=== PATIENT | female | born 1940 | race African-American/Black ===

== ENCOUNTER 2016-07-14 17:33 | Inpatient (IN) | payer OTHER ==
[~2016-07-14] VITALS: Ht 172.7 cm; Wt 88.0 kg
[2016-07-14 17:33] VITALS: BP 94/60; PULSE 94; RESP 17; TEMP 98.2; O2SAT 72
--- NOTE | 2016-07-14 17:33 | NUR ---
BROUGHT IN BY ACLS [address] AND CARLA RICHARDSON, PLACED IN BED #2 AND TRIAGED. REPORT GIVEN TO HOWARD
--- NOTE | 2016-07-14 17:33 | NUR ---
Placed on cardiac cath technologist, blood pressure machine and pulse oximeter. To gown for exam. Side rails up.
[2016-07-14] MEDS ORDERED: NACL 0.9% 1,000 ML IV SCH (17:43)
--- NOTE | 2016-07-14 17:49 | NUR ---
ER at bedside examining patient.
--- NOTE | 2016-07-14 17:50 | NUR ---
# 20 gauge angiocath placed to RFA. Use of asceptic technique. Opsite placed over site. Blood return noted. Blood for lab drawn from site. Flushed with 10 cc of normal saline. No evidence of infiltration noted. Patient tolerated well.
--- NOTE | 2016-07-14 17:51 | NUR ---
Pt left AMA at [facility] for weakness,hypotension earlier today.went to libarary,had a near syncopal episode at the restroom.did not fell.pt low blood pressure on scene.blood surgar 116. pt also c/o diarrhea since yesterday.feels very weak.pt is awake,alert,oriented x4. no focal neuro deficit noted.skin is cool and dry. no acute resp distress. will continue monitor pt
--- NOTE | 2016-07-14 18:23 | NUR ---
portable chest xay done at bedside
[2016-07-14 19:03] LABS: ANION GAP 5 (5-15); CALCIUM 8.3 mg/dL (8.4-11.0); CHLORIDE 103 mmol/L (98-107); CREATININE 2.45 mg/dL (0.55-1.30); GLUCOSE 117 mg/dL (70-99); POTASSIUM 3.8 mmol/L (3.5-5.1); SODIUM SERUM 134 mmol/L (136-145); UREA NITROGEN, BLOOD 54 mg/dL (8-21)
--- NOTE | 2016-07-14 19:07 | NUR ---
report given to retail shift leader casey UGARTE
[2016-07-14 19:08] LABS: ALANINE AMINOTRANSFERASE 37 U/L (12-78); ALBUMIN 3.4 g/dL (3.4-4.8); ASPARTATE AMINOTRANSFERASE 40 U/L (10-37); TOTAL BILIRUBIN 0.4 mg/dL (0.0-1.0); TOTAL PROTEIN, SERUM 7.2 g/dL (6.4-8.3)
[2016-07-14 19:11] LABS: BASOPHILS % (AUTO) 0.7 % (0.0-2.0); MONOCYTES # (AUTO) 0.4 K/uL (0.0-1.0); NEUTROPHILS # (AUTO) 3.7 K/uL (1.8-7.7)
--- NOTE | 2016-07-14 19:16 | NUR ---
Received patient alert and oriented and in no acute distress or SOB. Anxious to be admitted. Family members at bedside. Denies pain at this time. Will continue to monitor.
[2016-07-14 19:22] LABS: EOSINOPHILS % (AUTO) 0.7 % (0.0-4.0); HEMATOCRIT 36.6 % (36-48); HEMOGLOBIN 12.4 g/dL (12.0-16.0); LYMPHOCYTES # (AUTO) 1.3 K/uL (1.0-5.5); LYMPHOCYTES % (AUTO) 23.3 % (20.5-51.5); MEAN CORPUSCULAR HEMOGLOBIN 30 pg (27-31); MEAN CORPUSCULAR HGB CONC 34 % (32-36); MEAN CORPUSCULAR VOLUME 89 fL (79.0-98.0); MONOCYTES % (AUTO) 7.7 % (1.7-9.3); NEUTROPHILS % (AUTO) 67.6 % (40.0-70.0); PLATELET COUNT (AUTO) 225 K/uL (130-430); RED BLOOD CELL COUNT(AUTO) 4.12 MIL/uL (4.2-6.2); RED CELL DISTRIBUTION WIDTH 14.3 % (9.0-15.0); WHITE BLOOD COUNT (AUTO) 5.4 K/uL (4.8-10.8)
[2016-07-14] MEDS ORDERED: ASPIRIN 81 MG TAB.CHEW PO ONE (19:30)
[2016-07-14] MEDS ORDERED: COLC0.6T67 PO (19:42)
[2016-07-14] MEDS ORDERED: MONT10TA25 PO (19:42)
[2016-07-14] MEDS ORDERED: VALS1TAB40 PO (19:42)
[2016-07-14] MEDS ORDERED: COR12.5 PO (19:43)
[2016-07-14] MEDS ORDERED: LIP80 PO (19:45)
[2016-07-14] MEDS ORDERED: FURO-149 PO (19:47)
[2016-07-14] MEDS ORDERED: thyroxine PO (19:47)
[2016-07-14] MEDS ORDERED: LINA145C PO (19:47)
--- NOTE | 2016-07-14 20:17 | NUR ---
ADMISSION NOTE Received patient from ER via gurney. Patient admitted with diagnosis of Dehydration, Acute Renal Failure. Patient is awake, alert, oriented X 4. Patient oriented to hospital room, call light, toileting, pain management and safety-teach back done. Patient informed that Samir will be his nurse and that their room number is . Personal belongings checked and Belongings List documented. Call light within reach.
[2016-07-14 20:19] VITALS: BP 144/70; PULSE 68; RESP 19; TEMP 98.3; O2SAT 96
--- NOTE | 2016-07-14 20:20 | NUR ---
Patient will be admitted under the care of Dr. Rivas. Admitted to telemetry unit. Will go to room 107B. Belongings list completed. Summary report printed. Report will be given at bedside.
--- NOTE | 2016-07-14 21:08 | NUR ---
CONSULTATION PAGED REASON FOR CONSULTATION:RENAL FAILURE WAS CONSULT CALLED?Y PERSON WHO WAS NOTIFIED:DARLENE CONSULTING PHYSICIAN:KELSEY PEARSON (MICHAEL GELLER ELECTRICAL MAINTENANCE MAN) DEGREASER SPECIALTY:NEPHROLOGY DEGREASER PHONE NUMBER:[phone]
--- NOTE | 2016-07-14 21:11 | NUR ---
CONSULTATION PAGED REASON FOR CONSULTATION:ELEVATED TROPONIN WAS CONSULT CALLED?Y PERSON WHO WAS NOTIFIED:MARINA CONSULTING PHYSICIAN:JOSE BELLO MANAGER RESPIRATORY CARE SPECIALTY:CARDIO MANAGER RESPIRATORY CARE PHONE NUMBER:[phone]
[2016-07-14] MEDS ORDERED: PROMETHAZINE-DM 6.25 MG-15 MG/5 ML UDC PO PRN (21:15)
[2016-07-14] MEDS ORDERED: TEMAZEPAM 15 MG CAPSULE PO PRN (21:15)
[2016-07-14] MEDS ORDERED: ENOXAPARIN SODIUM 60 MG/0.6 ML SYRINGE SUBCUT ONE (21:15)
[2016-07-14] MEDS ORDERED: LEVOFLOXACIN 500 MG/D5W 100 ML IV ONE ×2 (21:15→21:46)
[2016-07-14] MEDS ORDERED: ONDANSETRON HCL 4 MG/2 ML VIAL IVP PRN (21:30)
[2016-07-14] MEDS ORDERED: cloNIDine HCL 0.2 MG TABLET PO PRN (21:30)
[2016-07-14] MEDS ORDERED: METOPROLOL TARTRATE 25 MG TABLET PO ONE (21:45)
[2016-07-14] MEDS ORDERED: NITROGLYCERIN 0.4 MG TAB.SUBL SL PRN (21:45)
[2016-07-14] MEDS: D5/0.45 NS 1,000 ML IV SCH (22:10)
--- NOTE | 2016-07-14 22:17 | NUR ---
Rounds Pt is talking with daughters at this time. No s/s of any pain noted. Bed in low position with call light within reach, will cont to monitor.
[2016-07-15] VITALS (7 sets, daily range): BP systolic 100–141; BP diastolic 63–77; PULSE 60–78; RESP 16–20; TEMP 97.4–99.5; O2SAT 95–99; Ht 172.7 cm; Wt 88.0 kg
--- NOTE | 2016-07-15 00:17 | NUR ---
Assisted to bedpan Assisted to bed [place]. No s/s of any pain.Bed in low position with call light within reach. Will cont to monitor.
--- NOTE | 2016-07-15 01:32 | NUR ---
PAGED DR FARAH FOR LAB RESULTS, SPOKE WITH FLORA
--- NOTE | 2016-07-15 01:39 | NUR ---
Critical Lab Paged and spoke with Dr Rivas to report trop at 0.179. NNO given.
[2016-07-15 02:04] LABS: URIC ACID 10.7 mg/dL (2.4-7.0)
--- NOTE | 2016-07-15 03:49 | NUR ---
Assisted to Commode Assisted to commode and safely back to bed. No s/s of pain or any distress noted. Bed in low position with side rails up x3. Call light within reach, will cont to monitor.
[2016-07-15 04:01] LABS: BILIRUBIN,URINE NEGATIVE (NEGATIVE); BLOOD, URINE NEGATIVE (NEGATIVE); COLOR,URINE YELLOW (YELLOW); GLUCOSE,URINE NEGATIVE (NEGATIVE); KETONES,URINE NEGATIVE (NEGATIVE); LEUKOCYTE ESTERASE ,URINE 2+ (NEGATIVE); NITRITE, URINE NEGATIVE (NEGATIVE); PH,URINE 5.5 (5.0-8.0); PROTEIN URINE NEGATIVE (NEGATIVE); UROBILINOGEN,URINE 0.2 (0.2-1.0)
--- NOTE | 2016-07-15 04:18 | NUR ---
CORRECTION OF DATE PROBLEMS IN INTERVENTION HAD A WRONG DATE. IT SHOULD BE 07/14/16 INSTEAD OF 07/13/16.
[2016-07-15 04:20] LABS: CLARITY/URINE SLIGHTLY CLOUDY (CLEAR)
[2016-07-15 04:21] LABS: BACTERIA,URINE MODERATE /HPF (None Seen); RBC,URINE 0-3 /HPF (0-3)
[2016-07-15 04:22] LABS: MUCUS,URINE None Seen /LPF (None Seen)
[2016-07-15] MEDS: D5/0.45 NS 1,000 ML IV SCH ×2 (06:01→18:05)
--- NOTE | 2016-07-15 06:57 | NUR ---
Final Notes Patient is comfortably resting at this time. No s/s of any distress noted. V/S are wnl. All needs met and anticipated by noc nurses. Bed in low position with side rails up x2. Call light within reach, endorsed.
[2016-07-15 07:44] LABS: BASOPHILS % (AUTO) 1.2 % (0.0-2.0); HEMATOCRIT 35.4 % (36-48); HEMOGLOBIN 11.5 g/dL (12.0-16.0); LYMPHOCYTES # (AUTO) 1.6 K/uL (1.0-5.5); MEAN CORPUSCULAR HEMOGLOBIN 29 pg (27-31); MEAN CORPUSCULAR HGB CONC 33 % (32-36); MEAN CORPUSCULAR VOLUME 91 fL (79.0-98.0); MONOCYTES # (AUTO) 0.6 K/uL (0.0-1.0); MONOCYTES % (AUTO) 13.9 % (1.7-9.3); NEUTROPHILS # (AUTO) 1.9 K/uL (1.8-7.7); NEUTROPHILS % (AUTO) 43.9 % (40.0-70.0); PLATELET COUNT (AUTO) 195 K/uL (130-430); RED BLOOD CELL COUNT(AUTO) 3.91 MIL/uL (4.2-6.2); RED CELL DISTRIBUTION WIDTH 14.3 % (9.0-15.0); WHITE BLOOD COUNT (AUTO) 4.1 K/uL (4.8-10.8)
--- NOTE | 2016-07-15 08:00 | NUR ---
AM Initial Notes Pt aaox4 with no complaints of pain, discomfort or dizziness. No sob, difficulty breathing or distress noted. hand reamer on. Pt states she didn't sleep well last night and feels tired. Assisted to bedside commode. Educated about fall and safety precautions. Assisted back to bed. Fall and safety precautions enforced with bed alarm armed, ID band on, 3 rails up and close to nurse's station. Encouraged to call for assistance. Kept comfortable. Will monitor.
[2016-07-15 08:43] LABS: ANION GAP 8 (5-15); CHLORIDE 103 mmol/L (98-107); GLUCOSE 93 mg/dL (70-99); POTASSIUM 4.2 mmol/L (3.5-5.1); SODIUM SERUM 133 mmol/L (136-145); TOTAL BILIRUBIN 0.3 mg/dL (0.0-1.0); UREA NITROGEN, BLOOD 50 mg/dL (8-21)
[2016-07-15 08:44] LABS: ALANINE AMINOTRANSFERASE 34 U/L (12-78); ALBUMIN 2.9 g/dL (3.4-4.8); ASPARTATE AMINOTRANSFERASE 39 U/L (10-37); CHOLESTEROL 166 mg/dL (<200); HDL CHOLESTEROL 20 mg/dL (>55); LDL CHOLESTEROL 109 mg/dL (<100); THYROID STIMULATING HORMONE 0.17 uIu/mL (0.34-4.82); TOTAL PROTEIN, SERUM 6.1 g/dL (6.4-8.3); TRIGLYCERIDES 182 mg/dL (30-150)
[2016-07-15] MEDS: CARVEDILOL 12.5 MG TABLET (COREG) PO SCH ×2 (08:46→20:44)
[2016-07-15] MEDS: ASPIRIN 81 MG TABLET(ECOTRIN) PO SCH (08:46)
[2016-07-15] MEDS: MONTELUKAST 10 MG TABLET PO SCH (08:46)
[2016-07-15] MEDS: ATORVASTATIN 20 MG TABLET PO SCH (08:46)
[2016-07-15] MEDS ORDERED: THYROXINE PO SCH (09:00)
--- NOTE | 2016-07-15 10:00 | NUR ---
Rounds Pt awake resting in bed with complaints of mild shortness of breath and wheezing. O2 via nasal canula @ 2L in place. O2 sat 92%. Pt requests for a breathing treatment. Respiratory therapist called for treatment. Kept comfortable. Encouraged to call for assistance. Will monitor.
--- NOTE | 2016-07-15 10:13 | NUR ---
Dr. Zeyad DICKSON inside room assessing patient.
[2016-07-15] MEDS: IPRATROPIUM/ALBUTEROL SULFATE 3 ML AMPUL.NEB INH PRN ×2 (10:31→15:14)
--- NOTE | 2016-07-15 11:37 | NUR ---
Patient assessment. Believes she was told she had a mild heart attack yesterday afternoon while attempting to go to the bathroom for a bowel movement. Says she had two bm's this day. Says her stools are loose until last night. Resting on left side at this time. Says she had many tests this am. Recent troponin 1.5.
--- NOTE | 2016-07-15 12:00 | NUR ---
Rounds Pt awake eating lunch. No complaints of pain or discomfort at this time. No sob, difficulty breathing or distress noted. Encouraged to call for assistance. Will monitor.
--- NOTE | 2016-07-15 12:49 | NUR ---
Dr. Evelyn DICKSON inside room assessing patient. Plan of care discussed.
--- NOTE | 2016-07-15 13:06 | NUR ---
Cough Pt complaints of coughing and wants to be medicated. Medicated with Phenergan-DM. Safety and fall precautions enforced. Encouraged to call for assistance. Call light within reach.
--- NOTE | 2016-07-15 14:37 | NUR ---
Asleep Pt sound asleep. No signs of facial grimacing for pain or discomfort. No distress noted. Call light within reach. Will monitor.
--- NOTE | 2016-07-15 15:04 | NUR ---
Shortness of Breath Pt complaints of coughing with shortness of breath. O2 sat 99% @ 2L. No distress noted. Called Respiratory for treatment. Elevated head of bed and kept comfortable. Will monitor.
--- NOTE | 2016-07-15 17:03 | NUR ---
Rounds Pt awake trying to sleep but couldn't because of cough. Complaints that Phenergan is not working and wants a stronger medication. Will call Dr. Rivas for orders. Calming and comfort measures given. Will monitor.
[2016-07-15] MEDS: COLCHICINE 0.6 MG TABLET PO SCH (18:00)
[2016-07-15] MEDS: ACETAMINOPHEN 325 MG TABLET PO PRN (18:04)
[2016-07-15] MEDS: BENZONATATE 100 MG CAPSULE (TESSALON) PO PRN (18:04)
--- NOTE | 2016-07-15 18:30 | NUR ---
Closing notes Pt asleep. No signs of facial grimacing for pain or discomfort. No distress noted. Will endorse care to incoming nurse.
--- NOTE | 2016-07-15 20:00 | NUR ---
STARTING PUBLIC STENOGRAPHER NOTE Patient in bed napping. No S/S of distress or pain noted. Patient coughed couple of times, the cough was wet and somewhat productive, but the patient did not want to spit the secretions out. Patient went to bed side commode with assist. Fall precautions/bed alarm in place. Report received from day shift nurse.
[2016-07-15] MEDS: LACTOBACILLUS RHAMNOSUS GG 1 CAP CAPSULE PO SCH (20:44)
[2016-07-15] MEDS ORDERED: LEVOFLOXACIN 250 MG/D5W 50 ML IV SCH (21:00)
--- NOTE | 2016-07-15 22:05 | NUR ---
paged paged for Dr Jeffers, dialed . s/w Barbara.
--- NOTE | 2016-07-15 22:20 | NUR ---
2220 NOTE The nurse received a call from Ana Lilia at the Lab about elevated Troponin level of 0.245. The nurse called Dr. Jeffers right after that at 22:06. Dr. Jeffers did not place any orders. The nurse went to check on the patient. Patient is in bed napping. She woke up and requested to go to the bed side commode. She produced 400 mL clear yellow urine. No distress or pain noted. Fall precautions in place, bed side alarm activated.
[2016-07-16 00:26] VITALS: BP 112/57; PULSE 68; RESP 16; TEMP 98.6; O2SAT 97
--- NOTE | 2016-07-16 00:30 | NUR ---
NOTE Patient in bed sleeping. No distress or pain noted. Fall precautions in place.
--- NOTE | 2016-07-16 03:45 | NUR ---
NOTE Patient in bed sleeping. No pain or distress noted. Bed alarm activated, call light within reach.
[2016-07-16 04:38] VITALS: BP 112/54; PULSE 75; RESP 16; TEMP 99.5; O2SAT 96
--- NOTE | 2016-07-16 05:49 | NUR ---
NOTE Patient in bed resting. RT is there to perform EKG per doctor's order. No S/S of distress or pain noted. Fall precautions in place.
[2016-07-16] MEDS: D5/0.45 NS 1,000 ML IV SCH (06:25)
[2016-07-16 06:45] LABS: BASOPHILS # (AUTO) 0.1 K/uL (0.0-0.2); BASOPHILS % (AUTO) 1.9 % (0.0-2.0); EOSINOPHILS % (AUTO) 0.5 % (0.0-4.0); HEMATOCRIT 33.8 % (36-48); HEMOGLOBIN 11.3 g/dL (12.0-16.0); LYMPHOCYTES # (AUTO) 1.5 K/uL (1.0-5.5); LYMPHOCYTES % (AUTO) 28.4 % (20.5-51.5); MEAN CORPUSCULAR HEMOGLOBIN 30 pg (27-31); MEAN CORPUSCULAR HGB CONC 33 % (32-36); MEAN CORPUSCULAR VOLUME 90 fL (79.0-98.0); MONOCYTES # (AUTO) 0.5 K/uL (0.0-1.0); MONOCYTES % (AUTO) 8.5 % (1.7-9.3); NEUTROPHILS # (AUTO) 3.3 K/uL (1.8-7.7); NEUTROPHILS % (AUTO) 60.7 % (40.0-70.0); PLATELET COUNT (AUTO) 198 K/uL (130-430); RED BLOOD CELL COUNT(AUTO) 3.76 MIL/uL (4.2-6.2); RED CELL DISTRIBUTION WIDTH 14.1 % (9.0-15.0); WHITE BLOOD COUNT (AUTO) 5.4 K/uL (4.8-10.8)
--- NOTE | 2016-07-16 06:45 | NUR ---
CLOSING NOTE HOTBED LEVER OPERATOR Patient in bed sleeping. No S/S of distress or pain noted. IVF running smoothly, the nurse hung new bag. Patient's needs met throughout the shift. Report will be given to the day shift nurse.
[2016-07-16] MEDS ORDERED: LEVOTHYROXINE SODIUM 0.088 MG TABLET PO SCH (07:00)
[2016-07-16 07:04] LABS: ALANINE AMINOTRANSFERASE 29 U/L (12-78); ALBUMIN 2.8 g/dL (3.4-4.8); ANION GAP 8 (5-15); ASPARTATE AMINOTRANSFERASE 30 U/L (10-37); CALCIUM 7.9 mg/dL (8.4-11.0); CHLORIDE 104 mmol/L (98-107); CREATININE 1.27 mg/dL (0.55-1.30); GLUCOSE 100 mg/dL (70-99); POTASSIUM 3.7 mmol/L (3.5-5.1); SODIUM SERUM 135 mmol/L (136-145); TOTAL BILIRUBIN 0.4 mg/dL (0.0-1.0); TOTAL PROTEIN, SERUM 6.5 g/dL (6.4-8.3); UREA NITROGEN, BLOOD 27 mg/dL (8-21)
--- NOTE | 2016-07-16 08:00 | NUR ---
AM Initial Note Pt aaox4 with no complaints of pain or discomfort. No sob, difficulty breathing or distress noted. Pt states she didn't rest well and her ribs hurt a little when coughing. portfolio consultant in place. Fall and safety precautions enforced but refused to have bed alarm armed. Encouraged to call for assistance. Call light within reach. Will monitor.
[2016-07-16 08:19] VITALS: BP 120/64; PULSE 67; RESP 20; TEMP 99.4; O2SAT 94
[2016-07-16] MEDS: BENZONATATE 100 MG CAPSULE (TESSALON) PO PRN (08:24)
[2016-07-16] MEDS: ATORVASTATIN 20 MG TABLET PO SCH (08:24)
[2016-07-16] MEDS: ASPIRIN 81 MG TABLET(ECOTRIN) PO SCH (08:24)
[2016-07-16] MEDS: LACTOBACILLUS RHAMNOSUS GG 1 CAP CAPSULE PO SCH (08:24)
[2016-07-16] MEDS: CARVEDILOL 12.5 MG TABLET (COREG) PO SCH (08:25)
[2016-07-16] MEDS: MONTELUKAST 10 MG TABLET PO SCH (08:25)
[2016-07-16] MEDS: ACETAMINOPHEN 325 MG TABLET PO PRN (08:26)
--- NOTE | 2016-07-16 09:20 | NUR ---
Physical Therapy Pt ambulating with therapist. Weakness and little unstable gait noted.
--- NOTE | 2016-07-16 09:45 | NUR ---
Shortness of breath Pt feels shortness of breath after ambulating with physical therapy. O2 sat 96% @ room air. Calming, comfort measures and slow deep breathing done. Offered to call Respiratory therapy for breathing treatment but patient refused. States she feels much better. Kept comfortable. Encouraged to call for assistance. Will monitor.
[2016-07-16 11:16] VITALS: BP 115/65; PULSE 63; RESP 16; TEMP 97.2; O2SAT 99
--- NOTE | 2016-07-16 11:45 | NUR ---
Rounds Pt asleep. No signs of facial grimacing for pain or discomfort. No sob, difficulty breathing or distress noted. Call light within reach. Will monitor.
--- NOTE | 2016-07-16 13:45 | NUR ---
Rounds Pt asleep but easily awakened. No complaints of pain. Complaints of mild shortness of breath but refused breathing treatment. States she feels fine. Encouraged to call for assistance. Call light within reach. Will monitor.
--- NOTE | 2016-07-16 14:15 | NUR ---
Dr. Evelyn DICKSON doing rounds and assessed patient thoroughly. Plan of care discussed.
--- NOTE | 2016-07-16 14:51 | NUR ---
DISCHARGE PLANNING DC order to arrange home nebulizer with medications. Faxed order to MARIE Levin at [employer] [phone]. Called [phone] Ext:[phone] spoke with Stefany who advised DCP to fax order to contracted DME vendor [phone][facility] Will follow up. Addendum: 07/16/16 at 1537 by Ruby BARRETO Called [facility] spoke with Rody in intake dept who stated fax takes 30-40min to upload in their system, advised DCP to follow up in 10-15min. Addendum: 07/16/16 at 1654 by Ruby BARRETO Spoke with Linda in intake dept at [facility] confirmed order was received and stated order will be scheduled to deliver to patient home tonight. Note left for CM to follow up in AM with patient. Addendum: 07/20/16 at 0939 by Ruby Trujillo DP Faxed requested to Dr Rivas office requested Rx order for Nebulizer medication. DCP will follow up. Addendum: 07/20/16 at 1509 by Ruby Trujillo DP Called and spoke with Linda [facility] [phone] who stated she will have mediation delivered to patient before 5pm today. SAURABH Padilla will notify patient.
--- NOTE | 2016-07-16 16:00 | NUR ---
Rounds Pt asleep. No significant changes noted. Will monitor.
[2016-07-16 16:21] VITALS: BP 116/59; PULSE 62; RESP 18; TEMP 98.2; O2SAT 98
[2016-07-16 16:27] VITALS: BP 116/59; PULSE 62; RESP 18; TEMP 98.2; O2SAT 98
[2016-07-16] MEDS: COLCHICINE 0.6 MG TABLET PO SCH (18:00)
--- NOTE | 2016-07-16 18:15 | NUR ---
Discharge Discharge patient with daughter. Transitional care instructions, handout and prescription for Doxycyline antibiotic. D/C technical buyer. D/C IV and dressing applied. Vital signs stable. Pt left floor via w/c to private vehicle. No distress noted.
--- NOTE | 2016-07-19 14:45 | NUR ---
Received call from Dr Rivas office stating insurance auth was not received for nebulizer medication. Confirmed nebulizer was delivered to patient home on Sunday 07/16. [phone] spoke with Linda in intake dept who confirmed insurance auth was not received for medication and are unable to make deliver arrangements till auth has been received. [phone] Ext:[phone] left detailed voice message requesting auth for nebulizer medication to be faxed to [facility] and requested return call back. Faxed copy of order to Stefany B at [place] [phone] marking urgent. DCP will follow up. Addendum: 07/20/16 at 0920 by Ruby BARRETO [phone] spoke with Antionette in intake dept still pending insurance auth for nebulizer medication. Called [place] [phone] spoke with Edyta who transferred call to [facility] who confirmed faxed order was received and requested for order specific to medications fax to [phone] Refer to Auth#[id number] on order. Addendum: 07/20/16 at 1151 by Ruby BARRETO Received Rx order from Dr Rivas office. Faxed Rx order to [facility] [phone] Reference to Auth#[id number]. Called [facility] [phone] spoke with Farrah who transferred [phone] who will follow up with [facility] for CPT codes so that auth can be formed and faxed. Clifford will have order expedited so that delivery arrangements can be made today. IDP will continue to follow up. Addendum: 07/20/16 at 1300 by Ruby Trujillo DP Called [facility] [phone] spoke with Les who will confirm with Pharmacy and return call to [facility] confirming insurance auth for nebulizer medication was received. IDP will continue to follow up. Addendum: 07/20/16 at 1416 by Ruby BARRETO Spoke with Darleen at [facility] confirmed auth was received for home nebulizer medication and call will be made to patient to make delivery arrangements to deliver medication to patient today. SAURABH Padilla will call patient and make patient aware.
--- NOTE | 2016-07-19 16:35 | NUR ---
Discharge Follow Up Phone Call: SHASTA called and spoke with pt ([phone]). Pt states that she is doing well; pt's prescriptions have been filled; there are no questions regarding discharge or medication instructions; pt will schedule PCP follow up appointment. CRACKER AND COOKIE MACHINE OPERATOR offered to assist pt with scheduling follow up appointment, but pt states that she will schedule the appointment. Pt states that she received the nebulizer from [facility] on 07/16/16, but she is still waiting to receive the nebulizer medication. SHASTA spoke with Deputy Insurance CommissionerRuby, and she states she is in process of arranging nebulizer medication. SHASTA provided pt with update regarding nebulizer medication and informed pt that Retirement Administrator will continue to follow up to confirm that nebulizer medication has been received. Pt states that she has some nebulizer medication to use while waiting for the new medication. Pt did not express any other needs or concerns at this time. Retirement Administrator will continue to follow up. Addendum: 07/20/16 at 1031 by Valerie Reich LCSW SHASTA spoke with MARKOS Hernandez. She was working on the medication order. SHASTA received a call from patient who stated she was out of her old medication and wanted an update when she would receive the medication. SHASTA informed her that MARKOS Hernandez was on the phone with Dr Rivas's office and patient would be contacted when there was another update. Will continue to follow. Addendum: 07/20/16 at 1518 by Valerie Reich LCSW MARKOS Hernandez stated all was arranged. CRACKER AND COOKIE MACHINE OPERATOR phoned patient. [facility] had called to arrange delivery after 5pm. Patient stated her gate closed at 5 so she would have to walk to pick the medicine up from the gate. Patient is sob. Mary called to have the medicine delivered before 5. [facility] notified patient. Patient was very happy. Addendum: 07/22/16 at 1136 by Valerie Reich LCSW Retirement Administrator left two voicemails on 07/21/16 requesting a return call to confirm her medications were received. Patient left a voicemail after hours that she was well and had received her medication on 07/20/16, as scheduled
== END 2016-07-16 18:15 | disposition home or self-care (01) | DRG 314 ==
LOC: SED 17:33 → STU 20:00
PROVIDERS: ADMIT Internal Medicine; ATTEND Internal Medicine
DX: I95.9 Hypotension, unspecified (principal); N17.0 Acute kidney failure with tubular necrosis; G93.41 Metabolic encephalopathy; J44.1 Chronic obstructive pulmonary disease with (acute) exacerbation; E87.1 Hypo-osmolality and hyponatremia; E86.0 Dehydration; I25.10 Atherosclerotic heart disease of native coronary artery without angina pectoris; I12.9 Hypertensive chronic kidney disease with stage 1 through stage 4 chronic kidney disease, or unspecified chronic kidney disease; N18.3 Chronic kidney disease, stage 3 (moderate); M10.9 Gout, unspecified; F17.200 Nicotine dependence, unspecified, uncomplicated; E78.5 Hyperlipidemia, unspecified; E78.00 Pure hypercholesterolemia, unspecified; E03.9 Hypothyroidism, unspecified; E66.9 Obesity, unspecified; Z95.1 Presence of aortocoronary bypass graft; Z90.49 Acquired absence of other specified parts of digestive tract; Z98.51 Tubal ligation status; Z88.0 Allergy status to penicillin; Z68.29 Body mass index [BMI] 29.0-29.9, adult; A08.4 Viral intestinal infection, unspecified; T50.1X5A Adverse effect of loop [high-ceiling] diuretics, initial encounter
CPT/HCPCS: 36415; 71010; 76770; 80053; 80061; 81000-TC; 82272; 83036; 83605; 83880; 84443-TC; 84484; 84550-TC; 85025; 85610-TC; 85730-TC; 87070-TC; 87205-TC; 87230-TC; 89055; 93005; 93306; 94640; 96360; 97116-GP; 99285; J1650; J1956; J7030

== ENCOUNTER 2019-07-06 17:17 | Emergency (ER) | payer OTHER ==
[~2019-07-06] VITALS: Ht 170.2 cm; Wt 81.6 kg
[~2019-07-06 17:17] MED LIST: COLC0.6T67 PO; COR12.5 PO; LINA145C PO; LIP80 PO; MONT10TA25 PO; thyroxine PO
[2019-07-06 18:05] VITALS: BP_SYST 141
[2019-07-06] MEDS ORDERED: DICY10CA59 PO (18:05)
[2019-07-06] MEDS ORDERED: ALBU90AE INH (18:05)
[2019-07-06] MEDS ORDERED: LOSA50TA3 PO (18:05)
[2019-07-06] MEDS ORDERED: HYDR100T25 PO (18:05)
[2019-07-06] MEDS ORDERED: HYDR25TA4 PO (18:05)
[2019-07-06 22:53] LABS: BASOPHILS # (AUTO) 0.1 K/uL (0.0-0.2); EOSINOPHILS # (AUTO) 0.1 K/uL (0.0-0.4); EOSINOPHILS % (AUTO) 1.4 % (0.0-4.0); HEMATOCRIT 37.2 % (36-48); HEMOGLOBIN 12.7 g/dL (12.0-16.0); LYMPHOCYTES # (AUTO) 2.8 K/uL (1.0-5.5); LYMPHOCYTES % (AUTO) 38.7 % (20.5-51.5); MEAN CORPUSCULAR HEMOGLOBIN 30 pg (27-31); MEAN CORPUSCULAR HGB CONC 34 % (32-36); MEAN CORPUSCULAR VOLUME 89 fL (79.0-98.0); MONOCYTES # (AUTO) 0.4 K/uL (0.0-1.0); MONOCYTES % (AUTO) 5.8 % (1.7-9.3); NEUTROPHILS # (AUTO) 3.8 K/uL (1.8-7.7); NEUTROPHILS % (AUTO) 53.1 % (40.0-70.0); PLATELET COUNT (AUTO) 345 K/uL (130-430); RED CELL DISTRIBUTION WIDTH 15.4 % (9.0-15.0); WHITE BLOOD COUNT (AUTO) 7.2 K/uL (4.8-10.8)
[2019-07-06 23:07] LABS: ANION GAP 7 (5-15); CHLORIDE 105 mmol/L (98-107); CREATININE 1.33 mg/dL (0.55-1.30); GLUCOSE 105 mg/dL (70-99); POTASSIUM 4.2 mmol/L (3.5-5.1); SODIUM SERUM 139 mmol/L (136-145); UREA NITROGEN, BLOOD 24 mg/dL (8-21)
[2019-07-06 23:13] LABS: ALANINE AMINOTRANSFERASE 35 U/L (12-78); ALBUMIN 3.5 g/dL (3.4-4.8); ASPARTATE AMINOTRANSFERASE 27 U/L (10-37); TOTAL BILIRUBIN 0.4 mg/dL (0.0-1.0)
[2019-07-07 00:05] VITALS: BP_SYST 144
== END 2019-07-07 00:05 | disposition home or self-care (01) ==
LOC: SED 17:17
DX: J02.9 Acute pharyngitis, unspecified (principal); N28.9 Disorder of kidney and ureter, unspecified; I10 Essential (primary) hypertension; J44.9 Chronic obstructive pulmonary disease, unspecified; I25.2 Old myocardial infarction; K21.9 Gastro-esophageal reflux disease without esophagitis; Z79.899 Other long term (current) drug therapy; Z88.0 Allergy status to penicillin
CPT/HCPCS: 36415; 71045; 80053; 83880; 85025; 86403; 87081; 93005; 99285

== ENCOUNTER 2023-03-20 23:09 | Inpatient (IN) | payer BC, MEDICAID ==
[~2023-03-20] VITALS: Ht 165.1 cm; Wt 81.2 kg
[~2023-03-20 23:09] MED LIST changes: +ALBU90AE INH; -COLC0.6T67 PO; +DICY10CA59 PO; +HYDR100T25 PO; +HYDR25TA4 PO; -LINA145C PO; -LIP80 PO; +LOSA-413 PO; -MONT10TA25 PO; -thyroxine PO
[2023-03-20 23:20] VITALS: BP_SYST 120; PULSE 80; RESP 16; TEMP 96.9; O2SAT 98
[2023-03-21 00:25] LABS: BASOPHILS # (AUTO) 0.1 K/uL (0.0-0.2); BASOPHILS % (AUTO) 0.8 % (0.0-2.0); EOSINOPHILS # (AUTO) 0.1 K/uL (0.0-0.4); EOSINOPHILS % (AUTO) 0.9 % (0.0-4.0); HEMATOCRIT 36.8 % (36-48); HEMOGLOBIN 12.6 g/dL (12.0-16.0); LYMPHOCYTES # (AUTO) 1.6 K/uL (1.0-5.5); LYMPHOCYTES % (AUTO) 15.8 % (20.5-51.5); MEAN CORPUSCULAR HEMOGLOBIN 31 pg (27-31); MEAN CORPUSCULAR HGB CONC 34 % (32-36); MEAN CORPUSCULAR VOLUME 91 fL (79.0-98.0); MONOCYTES # (AUTO) 0.7 K/uL (0.0-1.0); MONOCYTES % (AUTO) 6.6 % (1.7-9.3); NEUTROPHILS # (AUTO) 7.6 K/uL (1.8-7.7); NEUTROPHILS % (AUTO) 75.9 % (40.0-70.0); PLATELET COUNT (AUTO) 382 K/uL (130-430); RED BLOOD CELL COUNT(AUTO) 4.06 MIL/uL (4.2-6.2); RED CELL DISTRIBUTION WIDTH 16.6 % (9.0-15.0)
[2023-03-21 00:38] LABS: ANION GAP 8 (5-15); CALCIUM 9.4 mg/dL (8.4-11.0); CARBON DIOXIDE 29 mmol/L (23-29); CHLORIDE 105 mmol/L (98-107); CREATININE 1.33 mg/dL (0.55-1.30); GLUCOSE 107 mg/dL (74-106); POTASSIUM 3.7 mmol/L (3.5-5.1); SODIUM SERUM 142 mmol/L (136-145); UREA NITROGEN, BLOOD 26 mg/dL (8-21)
[2023-03-21] MEDS ORDERED: hydrALAZINE HCL 20 MG/ML VIAL IVP ONE (02:00)
[2023-03-21] MEDS ORDERED: TIOT18CA3 IH (02:41)
[2023-03-21] MEDS ORDERED: METO25TA3 PO (02:41)
[2023-03-21] MEDS ORDERED: LEVO100T9 PO (02:41)
[2023-03-21] MEDS ORDERED: FURO-150 PO (02:41)
[2023-03-21] MEDS ORDERED: DIGO125T PO (02:41)
[2023-03-21] MEDS ORDERED: FLUT12AE5 IH (02:41)
[2023-03-21] MEDS ORDERED: LOPE2CAP PO (02:43)
[2023-03-21] MEDS ORDERED: DICY10SO PO (02:43)
[2023-03-21 04:30] VITALS: BP_SYST 161; PULSE 90; RESP 18; TEMP 98.8; O2SAT 99
[2023-03-21] MEDS ORDERED: hydrALAZINE HCL 25 MG TABLET PO ONE (05:45)
[2023-03-21] MEDS ORDERED: FLUT1DIS3 INH (07:17)
[2023-03-21 08:00] VITALS: BP_SYST 150; PULSE 99; RESP 18; TEMP 97.3; O2SAT 98
[2023-03-21 09:38] VITALS: PULSE 96; O2SAT 99
[2023-03-21] MEDS ORDERED: APIXABAN 2.5 MG TABLET PO ONE (09:45)
[2023-03-21] MEDS ORDERED: IPRATROPIUM/ALBUTEROL SULFATE 3 ML AMPUL.NEB (DUONEB) INH PRN ×2 (09:45→11:30)
[2023-03-21] MEDS ORDERED: LOSARTAN POTASSIUM 50 MG TABLET (COZAAR) PO ONE (09:45)
[2023-03-21] MEDS ORDERED: DIGOXIN 0.125 MG TABLET PO ONE (09:45)
[2023-03-21] MEDS ORDERED: CARVEDILOL 12.5 MG TABLET (COREG) PO ONE (09:45)
[2023-03-21] MEDS ORDERED: FUROSEMIDE 40 MG/4 ML VIAL IVP ONE (09:45)
[2023-03-21] MEDS ORDERED: hydrALAZINE HCL 20 MG/ML VIAL IVP PRN (09:45)
[2023-03-21 12:00] VITALS: BP_SYST 149; PULSE 89; RESP 20; TEMP 97.7; O2SAT 97
[2023-03-21 12:00] LABS: BASOPHILS % (AUTO) 0.4 % (0.0-2.0); EOSINOPHILS % (AUTO) 0.5 % (0.0-4.0); HEMATOCRIT 36.2 % (36-48); HEMOGLOBIN 12.6 g/dL (12.0-16.0); LYMPHOCYTES # (AUTO) 1.3 K/uL (1.0-5.5); LYMPHOCYTES % (AUTO) 14.3 % (20.5-51.5); MEAN CORPUSCULAR HEMOGLOBIN 32 pg (27-31); MEAN CORPUSCULAR HGB CONC 35 % (32-36); MEAN CORPUSCULAR VOLUME 91 fL (79.0-98.0); MONOCYTES # (AUTO) 0.5 K/uL (0.0-1.0); MONOCYTES % (AUTO) 5.9 % (1.7-9.3); NEUTROPHILS # (AUTO) 7.2 K/uL (1.8-7.7); NEUTROPHILS % (AUTO) 78.9 % (40.0-70.0); PLATELET COUNT (AUTO) 369 K/uL (130-430); RED BLOOD CELL COUNT(AUTO) 3.99 MIL/uL (4.2-6.2); RED CELL DISTRIBUTION WIDTH 16.3 % (9.0-15.0); WHITE BLOOD COUNT (AUTO) 9.1 K/uL (4.8-10.8)
[2023-03-21 12:16] LABS: ANION GAP 5 (5-15); CALCIUM 9.2 mg/dL (8.4-11.0); CARBON DIOXIDE 30 mmol/L (23-29); CHLORIDE 103 mmol/L (98-107); CREATININE 1.13 mg/dL (0.55-1.30); GLUCOSE 103 mg/dL (74-106); POTASSIUM 3.7 mmol/L (3.5-5.1); SODIUM SERUM 138 mmol/L (136-145); UREA NITROGEN, BLOOD 22 mg/dL (8-21)
[2023-03-21 12:36] LABS: ALANINE AMINOTRANSFERASE 32 U/L (12-78); ALBUMIN 3.4 g/dL (3.4-4.8); ASPARTATE AMINOTRANSFERASE 22 U/L (10-37); TOTAL BILIRUBIN 0.4 mg/dL (0.0-1.0); TOTAL PROTEIN, SERUM 7.4 g/dL (6.4-8.3)
[2023-03-21 16:00] VITALS: BP_SYST 155; PULSE 97; RESP 18; TEMP 98; O2SAT 97
[2023-03-21 20:00] VITALS: BP_SYST 164; PULSE 79; RESP 18; TEMP 98.2; O2SAT 99
[2023-03-21] MEDS: LOSARTAN POTASSIUM 50 MG TABLET (COZAAR) PO SCH (20:10)
[2023-03-21] MEDS: CARVEDILOL 12.5 MG TABLET (COREG) PO SCH (20:10)
[2023-03-21] MEDS: APIXABAN 2.5 MG TABLET PO SCH (20:11)
[2023-03-21] MEDS: FLUTICASONE 250 mCg/SALMETEROL 50 mCg DISKUS W.DEV INH SCH (22:30)
[2023-03-21] MEDS ORDERED: ALBUTEROL SULFATE INH SCH (22:30)
[2023-03-21] MEDS: LEVOTHYROXINE SODIUM 0.1 MG TABLET PO SCH (22:30)
[2023-03-22] VITALS (7 sets, daily range): BP systolic 123–160; PULSE 65–94; RESP 16–20; TEMP 97.7–98.1; O2SAT 95–99
[2023-03-22] MEDS: LEVOTHYROXINE SODIUM 0.1 MG TABLET PO SCH (06:31)
[2023-03-22] MEDS ORDERED: ALBUTEROL SULFATE 0.083% 2.5 MG/3 ML VIAL.NEB INH PRN (06:45)
[2023-03-22 06:54] LABS: BASOPHILS % (AUTO) 0.6 % (0.0-2.0); EOSINOPHILS # (AUTO) 0.1 K/uL (0.0-0.4); EOSINOPHILS % (AUTO) 0.9 % (0.0-4.0); HEMATOCRIT 33.9 % (36-48); HEMOGLOBIN 11.6 g/dL (12.0-16.0); LYMPHOCYTES # (AUTO) 1.5 K/uL (1.0-5.5); LYMPHOCYTES % (AUTO) 19.5 % (20.5-51.5); MEAN CORPUSCULAR HEMOGLOBIN 31 pg (27-31); MEAN CORPUSCULAR HGB CONC 34 % (32-36); MEAN CORPUSCULAR VOLUME 90 fL (79.0-98.0); MONOCYTES # (AUTO) 0.5 K/uL (0.0-1.0); MONOCYTES % (AUTO) 6.6 % (1.7-9.3); NEUTROPHILS # (AUTO) 5.4 K/uL (1.8-7.7); NEUTROPHILS % (AUTO) 72.4 % (40.0-70.0); PLATELET COUNT (AUTO) 358 K/uL (130-430); RED BLOOD CELL COUNT(AUTO) 3.76 MIL/uL (4.2-6.2); RED CELL DISTRIBUTION WIDTH 16.2 % (9.0-15.0); WHITE BLOOD COUNT (AUTO) 7.5 K/uL (4.8-10.8)
[2023-03-22 07:08] LABS: ALANINE AMINOTRANSFERASE 27 U/L (12-78); ALBUMIN 2.9 g/dL (3.4-4.8); ANION GAP 10 (5-15); ASPARTATE AMINOTRANSFERASE 24 U/L (10-37); CALCIUM 9.2 mg/dL (8.4-11.0); CARBON DIOXIDE 29 mmol/L (23-29); CHLORIDE 104 mmol/L (98-107); CREATININE 1.24 mg/dL (0.55-1.30); GLUCOSE 95 mg/dL (74-106); POTASSIUM 3.8 mmol/L (3.5-5.1); SODIUM SERUM 143 mmol/L (136-145); TOTAL BILIRUBIN 0.7 mg/dL (0.0-1.0); TOTAL PROTEIN, SERUM 6.4 g/dL (6.4-8.3); UREA NITROGEN, BLOOD 28 mg/dL (8-21)
[2023-03-22] MEDS: FLUTICASONE 250 mCg/SALMETEROL 50 mCg DISKUS W.DEV INH SCH (08:09)
[2023-03-22] MEDS: LOSARTAN POTASSIUM 50 MG TABLET (COZAAR) PO SCH (08:10)
[2023-03-22] MEDS: CARVEDILOL 12.5 MG TABLET (COREG) PO SCH (08:11)
[2023-03-22] MEDS: APIXABAN 2.5 MG TABLET PO SCH (08:13)
[2023-03-22] MEDS ORDERED: FUROSEMIDE 40 MG/4 ML VIAL IVP SCH (09:00)
[2023-03-22] MEDS ORDERED: DIGOXIN 0.125 MG TABLET PO SCH (09:00)
[2023-03-22 09:51] LABS: BILIRUBIN,URINE NEGATIVE (NEGATIVE); BLOOD, URINE NEGATIVE (NEGATIVE); CLARITY/URINE CLEAR (CLEAR); COLOR,URINE YELLOW (YELLOW); GLUCOSE,URINE NEGATIVE (NEGATIVE); KETONES,URINE NEGATIVE (NEGATIVE); LEUKOCYTE ESTERASE ,URINE NEGATIVE (NEGATIVE); NITRITE, URINE NEGATIVE (NEGATIVE); PROTEIN URINE NEGATIVE (NEGATIVE); UROBILINOGEN,URINE 0.2 (0.2-1.0)
[2023-03-22] MEDS ORDERED: APIX2.5T PO (14:05)
[2023-03-22] MEDS ORDERED: LOSA-413 PO (15:48)
[2023-03-22] MEDS ORDERED: COR25 PO (15:48)
[2023-03-22] MEDS ORDERED: CARVEDILOL 25 MG TABLET (COREG) PO SCH (21:00)
== END 2023-03-22 17:15 | disposition home or self-care (01) | DRG 291 ==
LOC: SED 23:09 → STU 03-21 01:18
PROVIDERS: ADMIT Specialist; ATTEND Family Medicine
DX: I13.0 Hypertensive heart and chronic kidney disease with heart failure and stage 1 through stage 4 chronic kidney disease, or unspecified chronic kidney disease (principal); I50.23 Acute on chronic systolic (congestive) heart failure; J44.1 Chronic obstructive pulmonary disease with (acute) exacerbation; N17.9 Acute kidney failure, unspecified; I25.10 Atherosclerotic heart disease of native coronary artery without angina pectoris; I48.91 Unspecified atrial fibrillation; N18.9 Chronic kidney disease, unspecified; E03.9 Hypothyroidism, unspecified; Z95.1 Presence of aortocoronary bypass graft; Z79.01 Long term (current) use of anticoagulants; Z88.0 Allergy status to penicillin; Z79.899 Other long term (current) drug therapy
CPT/HCPCS: 36415; 71045; 80048; 80053; 81001; 81003; 83880; 84484; 85025; 85379; 93005; 93306; 93971; 94760; 97116-GP; 97530-GP; 99285; G0378; J0360; J1940